=== PATIENT | male | born 1955 | race Caucasian/White ===

== ENCOUNTER 2021-11-30 22:06 | Emergency (ER) | payer MEDICARE ==
[~2021-11-30] VITALS: Ht 180.3 cm; Wt 119.7 kg
[2021-11-30 22:34] LABS: EOSINOPHILS % (AUTO) 2.4 % (0.0-8.0); HEMATOCRIT 29.6 % (42-54); LYMPHOCYTES % (AUTO) 21.2 % (21.0-51.0); MEAN CORPUSCULAR HEMOGLOBIN 27.2 pg (27.0-33.0); MEAN CORPUSCULAR HGB CONC 31.8 g/dL (32.0-36.0); MEAN CORPUSCULAR VOLUME 85.8 fL (79-99); MONOCYTES % (AUTO) 5.8 % (3.0-13.0); PLATELET COUNT (AUTO) 411 K/uL (130-400); RED BLOOD CELL COUNT(AUTO) 3.45 MIL/uL (4.50-6.20); RED CELL DISTRIBUTION WIDTH 17.6 % (11.0-15.5); WHITE BLOOD COUNT (AUTO) 19.7 K/uL (4.8-10.8)
[2021-11-30 22:37] LABS: CREATININE 1.3 mg/dL (0.5-1.5); POTASSIUM 4.1 mmol/L (3.5-5.1)
[2021-11-30 22:42] LABS: BILIRUBIN,TOTAL 0.2 mg/dL (0.2-1.0); TOTAL PROTEIN, SERUM 6.9 g/dL (6.0-8.3)
[2021-12-01 06:44] VITALS: BP 144/72
== END 2021-12-01 07:05 | disposition home or self-care (01) ==
LOC: EDH 22:06
DX: G40.909 Epilepsy, unspecified, not intractable, without status epilepticus (principal); Z60.2 Problems related to living alone
CPT/HCPCS: 36415; 70450; 71250; 72125; 73030; 73562; 74176; 80053; 84484; 85025; 93005